=== PATIENT | male | born 1985 | race Caucasian/White ===

== ENCOUNTER 2023-01-15 08:38 | Emergency (ER) | payer MEDICAID ==
[~2023-01-15] VITALS: Ht 170.2 cm; Wt 65.0 kg
[2023-01-15 09:11] VITALS: BP 125/69
[2023-01-15] MEDS ORDERED: AMOX1TAB16 PO (09:42)
[2023-01-15] MEDS ORDERED: RABIES IMMUNE GLOBULIN/PF 300 UNITS/ML 5 ML VIAL IM. ONE (09:45)
[2023-01-15] MEDS ORDERED: RABIES VACCINE, HUMAN DIPLOID/PF 2.5 UNITS/ML VIAL IM. ONE (09:45)
[2023-01-15] MEDS ORDERED: PERTUSS(ACELL),DIPH,TET VAC/PF 0.5 ML SYRINGE IM. ONE (09:45)
== END 2023-01-15 11:00 | disposition home or self-care (01) ==
LOC: EMS 08:46
DX: S51.851A Open bite of right forearm, initial encounter (principal); S11.95XA Open bite of unspecified part of neck, initial encounter; S21.151A Open bite of right front wall of thorax without penetration into thoracic cavity, initial encounter; Z98.890 Other specified postprocedural states; W54.0XXA Bitten by dog, initial encounter; Y93.89 Activity, other specified; Y92.89 Other specified places as the place of occurrence of the external cause; Y99.8 Other external cause status
CPT/HCPCS: 90375; 90471; 90472; 90675; 90715; 96372; 99284

== ENCOUNTER 2023-01-18 09:36 | Emergency (ER) | payer MEDICAID ==
[~2023-01-18] VITALS: Ht 170.2 cm; Wt 68.2 kg
[~2023-01-18 09:36] MED LIST: AMOX1TAB16 PO
[2023-01-18 09:42] VITALS: BP 126/72
[2023-01-18] MEDS ORDERED: IBUP-1554 PO (09:55)
[2023-01-18] MEDS ORDERED: RABIES VACCINE, HUMAN DIPLOID/PF 2.5 UNITS/ML VIAL IM. ONE (10:00)
== END 2023-01-18 10:33 | disposition home or self-care (01) ==
LOC: EMS 09:38
DX: S39.013S Strain of muscle, fascia and tendon of pelvis, sequela (principal); S39.012A Strain of muscle, fascia and tendon of lower back, initial encounter; S81.851D Open bite, right lower leg, subsequent encounter; Z23 Encounter for immunization; Z98.890 Other specified postprocedural states; W54.0XXD Bitten by dog, subsequent encounter
CPT/HCPCS: 90471; 90675; 99281; 99283

== ENCOUNTER 2023-01-22 17:02 | Emergency (ER) | payer MEDICAID ==
[~2023-01-22] VITALS: Ht 172.7 cm; Wt 63.6 kg
[~2023-01-22 17:02] MED LIST changes: +IBUP-1554 PO
[2023-01-22] MEDS ORDERED: RABIES VACCINE, HUMAN DIPLOID/PF 2.5 UNITS/ML VIAL IM. ONE (18:15)
[2023-01-22 19:48] VITALS: BP 110/60
== END 2023-01-22 19:50 | disposition home or self-care (01) ==
LOC: EMS 17:04
DX: S41.051D Open bite of right shoulder, subsequent encounter (principal); Z23 Encounter for immunization
CPT/HCPCS: 90471; 90675; 99281

== ENCOUNTER 2023-01-29 07:58 | Emergency (ER) | payer MEDICAID ==
[~2023-01-29] VITALS: Ht 165.1 cm; Wt 65.9 kg
[2023-01-29 08:00] VITALS: BP 102/61
[2023-01-29] MEDS ORDERED: RABIES VACCINE, HUMAN DIPLOID/PF 2.5 UNITS/ML VIAL IM. ONE (08:30)
[2023-01-29] MEDS ORDERED: AmLODIPine BESYLATE 5 MG TABLET PO ONE (08:45)
[2023-01-29] MEDS ORDERED: LISINOPRIL 10 MG TABLET PO ONE (08:45)
== END 2023-01-29 08:57 | disposition home or self-care (01) ==
LOC: EMS 08:00
DX: T14.8XXA Other injury of unspecified body region, initial encounter (principal); E11.9 Type 2 diabetes mellitus without complications; I10 Essential (primary) hypertension; Z23 Encounter for immunization
CPT/HCPCS: 90471; 90675; 99281